=== PATIENT | female | born 1985 | race African-American/Black ===

== ENCOUNTER 2016-12-22 10:28 | Emergency (ER) | payer OTHER ==
[~2016-12-22] VITALS: Ht 165.1 cm; Wt 60.9 kg
[~2016-12-22 10:28] MED LIST: FLEXERIL10 MG PO; FLONASE16 G1 BOTH NARES; MEDROL DOSEPAK4 MG PO; MOTRIN600 MG PO; Motrin PO; NAPROSYN500 MG PO; NATALCARE RX1 TABLET PO; Percocet 5/325,Endoc PO; RANITIDINE HCL150 M1 PO; SUDAFED 12-HOU120 MG PO; VITAMIN D35000 UNIT PO; ZANTAC150 MG PO; ZYRTEC10 M1 PO
[2016-12-22] MEDS ORDERED: NAPROSYN500 MG PO (11:38)
[2016-12-22 12:00] VITALS: BP 125/78
== END 2016-12-22 12:01 | disposition home or self-care (01) ==
LOC: EME 10:28
DX: S63.501A Unspecified sprain of right wrist, initial encounter (principal); W50.2XXA Accidental twist by another person, initial encounter; Y93.F9 Activity, other caregiving; Y92.239 Unspecified place in hospital as the place of occurrence of the external cause; Y99.0 Civilian activity done for income or pay
CPT/HCPCS: 73110; 99281; 99283